=== PATIENT | female | born 1995 | race Two or more races ===

== ENCOUNTER → 2017-12-26 | Emergency (ER) | payer OTHER ==
[~2017-12-26] VITALS: Ht 167.6 cm; Wt 81.6 kg
== END | disposition home or self-care (01) ==
LOC: ER 12:47
DX: O20.0 Threatened abortion (principal); O23.41 Unspecified infection of urinary tract in pregnancy, first trimester; Z34.01 Encounter for supervision of normal first pregnancy, first trimester

== ENCOUNTER 2018-01-22 19:28 | Emergency (ER) | payer OTHER ==
[~2018-01-22] VITALS: Ht 165.1 cm; Wt 81.6 kg
== END 2018-01-22 22:50 | disposition home or self-care (01) ==
LOC: ER 19:28
DX: O26.892 Other specified pregnancy related conditions, second trimester (principal); R10.2 Pelvic and perineal pain; Z34.02 Encounter for supervision of normal first pregnancy, second trimester

== ENCOUNTER 2018-03-08 15:09 | Emergency (ER) | payer OTHER ==
[~2018-03-08] VITALS: Ht 167.6 cm; Wt 82.1 kg
== END 2018-03-08 21:19 | disposition home or self-care (01) ==
LOC: ER 15:09
DX: O23.42 Unspecified infection of urinary tract in pregnancy, second trimester (principal); R10.2 Pelvic and perineal pain; Z34.01 Encounter for supervision of normal first pregnancy, first trimester

== ENCOUNTER 2023-09-07 22:08 | Emergency (ER) | payer OTHER ==
[~2023-09-07] VITALS: Ht 165.1 cm; Wt 83.9 kg
[2023-09-07 23:13] LABS: HEMATOCRIT 37.9 % (36.0-45.00); MEAN CELL VOLUME 81.6 fL (80.00-100.00); MEAN CORPUSCULAR HEMOGLOBIN 27.9 pg (27.00-32.0); MEAN CORPUSCULAR HGB CONC 34.2 g/dl (32.0-36.0); PLATELET COUNT 322 K/uL (150-450); RED BLOOD COUNT 4.65 M/uL (4.00-6.00)
[2023-09-07 23:54] LABS: PH,URINE 6.5 (5.0-8.0); URINE APPEARANCE Clear; URINE BILIRRUBIN Negative (NEGATIVE); URINE BLOOD Negative; URINE COLOR Yellow; URINE GLUCOSE Negative (NEGATIVE); URINE LEUKOCYTE Large; URINE NITRATE Negative; URINE PROTEIN Negative (NEGATIVE); URINE UROBILINOGEN 0.2 E.U./dl
[2023-09-07 23:55] LABS: URINE BACTERIA 395.6 uL (0.0-1933); URINE EPITHELIAL CELLS 72.5 uL (0.0-38.8); URINE RBC 6.1 uL (0.0-20.8); URINE WBC 13.6 uL (0.0-23.2)
[2023-09-08] MEDS ORDERED: MONISTAT 745 GM VAG (00:05)
[2023-09-08] MEDS ORDERED: MACRODANTIN100 M1 PO (00:05)
== END 2023-09-08 00:08 | disposition home or self-care (01) ==
LOC: ER 22:09
PROVIDERS: General Practice
DX: O23.41 Unspecified infection of urinary tract in pregnancy, first trimester (principal); N39.0 Urinary tract infection, site not specified; O23.591 Infection of other part of genital tract in pregnancy, first trimester; Z3A.08 8 weeks gestation of pregnancy

== ENCOUNTER 2024-08-25 13:57 | Emergency (ER) | payer OTHER ==
[~2024-08-25] VITALS: Ht 165.1 cm; Wt 86.2 kg
[~2024-08-25 13:57] MED LIST: MACRODANTIN100 M1 PO; MONISTAT 745 GM VAG
[2024-08-25 14:59] LABS: HEMOGLOBIN 13.8 g/dL (12.0-15.00); MEAN CELL VOLUME 82.2 fL (80.00-100.00); MEAN CORPUSCULAR HEMOGLOBIN 28.5 pg (27.00-32.0); MEAN CORPUSCULAR HGB CONC 34.6 g/dl (32.0-36.0); PLATELET COUNT 332 K/uL (150-450); RED BLOOD COUNT 4.86 M/uL (4.00-6.00); RED CELL DISTRIBUTION WIDTH 13.1 % (11.5-14.5)
[2024-08-25 15:02] LABS: PH,URINE 6.5 (5.0-8.0); URINE APPEARANCE Cloudy; URINE BILIRRUBIN Negative (NEGATIVE); URINE BLOOD Negative; URINE COLOR Yellow; URINE GLUCOSE Negative (NEGATIVE); URINE KETONE Negative (NEGATIVE); URINE LEUKOCYTE Moderate; URINE NITRATE Negative; URINE PROTEIN Negative (NEGATIVE); URINE UROBILINOGEN 0.2 E.U./dl
[2024-08-25 15:06] LABS: URINE EPITHELIAL CELLS 119.8 uL (0.0-38.8); URINE RBC 12.8 uL (0.0-20.8); URINE WBC 247.4 uL (0.0-23.2)
[2024-08-25 15:35] LABS: URINE BACTERIA > 9821.5 uL (0.0-1933)
[2024-08-25] MEDS ORDERED: CEFADROXIL500 MG PO (16:17)
== END 2024-08-25 17:14 | disposition home or self-care (01) ==
LOC: ER 13:59
PROVIDERS: General Practice
DX: O26.851 Spotting complicating pregnancy, first trimester (principal); R10.2 Pelvic and perineal pain

== ENCOUNTER → 2024-09-24 | Emergency (ER) | payer OTHER ==
[~2024-09-24] VITALS: Ht 165.1 cm; Wt 81.6 kg
[~2024-09-24] MED LIST changes: +CEFADROXIL500 MG PO; +CEFTRIAXONE SODIUM 1,000 MG VIAL IV ONE; +CEFTRIAXONE SODIUM 1,000 MG VIAL ONE; +GUAIFENESIN 200 MG/10 ML BLIST.PACK PO ONE; +GUAIFENESIN 200 MG/10 ML BLIST.PACK PO STA; +GUAIFENESIN/DEXTROMETHORPHAN 10ML BLIST.PACK PO ONE; +KETOROLAC TROMETHAMINE 30 MG VIAL IV STA; +KETOROLAC TROMETHAMINE 30 MG VIAL ONE; +MEPERIDINE HCL/PF 50 MG/ML VIAL IM ONE; +ONDANSETRON HCL 2 MG/ML VIAL IV ONE; +ONDANSETRON HCL 2 MG/ML VIAL ONE; +RINGERS SOLUTION,LACTATED 1,000 ML IV SCH
[2024-09-24 06:28] LABS: HEMOGLOBIN 13.1 g/dL (12.0-15.00); MEAN CORPUSCULAR HEMOGLOBIN 27.6 pg (27.00-32.0); MEAN CORPUSCULAR HGB CONC 33.7 g/dl (32.0-36.0); PLATELET COUNT 316 K/uL (150-450); RED BLOOD COUNT 4.76 M/uL (4.00-6.00); RED CELL DISTRIBUTION WIDTH 12.8 % (11.5-14.5)
[2024-09-24 07:10] LABS: PH,URINE 5.5 (5.0-8.0); URINE APPEARANCE Clear; URINE BILIRRUBIN Negative (NEGATIVE); URINE BLOOD Small; URINE COLOR Yellow; URINE GLUCOSE Negative (NEGATIVE); URINE KETONE Negative (NEGATIVE); URINE LEUKOCYTE Trace; URINE NITRATE Negative; URINE PROTEIN Negative (NEGATIVE); URINE UROBILINOGEN 0.2 E.U./dl
[2024-09-24 07:11] LABS: URINE EPITHELIAL CELLS 7.7 uL (0.0-38.8); URINE WBC 78.1 uL (0.0-23.2)
[2024-09-24 07:19] LABS: ALBUMIN 3.3 gm/dL (3.4-5.0); BILIRUBIN TOTAL 0.19 mg/dL (0.3-1.2); CALCIUM 9.2 mg/dL (8.5-10.1); CREATININE SERUM 0.74 mg/dL (0.55-1.02); GFR 94.14; GLOBULINA 4.3 G/DL (2.4-3.5); POTASSIUM 3.57 mEq/L (3.5-5.1); TOTAL PROTEIN 7.6 gm/dL (6.4-8.2)
[2024-09-24 07:20] LABS: URINE CAST 0.14 uL (0.0-1.40)
== END | disposition designated cancer center or children's hospital (05) ==
LOC: ER 05:19
PROVIDERS: General Practice
DX: Z34.90 Encounter for supervision of normal pregnancy, unspecified, unspecified trimester (principal); R10.9 Unspecified abdominal pain; R50.9 Fever, unspecified; R10.2 Pelvic and perineal pain; Z20.822 Contact with and (suspected) exposure to COVID-19

== ENCOUNTER → 2025-01-01 09:40 | Outpatient (CLI) | payer OTHER ==
[~2025-01-01 09:40] MED LIST changes: -CEFTRIAXONE SODIUM 1,000 MG VIAL IV ONE; -CEFTRIAXONE SODIUM 1,000 MG VIAL ONE; -GUAIFENESIN 200 MG/10 ML BLIST.PACK PO ONE; -GUAIFENESIN 200 MG/10 ML BLIST.PACK PO STA; -GUAIFENESIN/DEXTROMETHORPHAN 10ML BLIST.PACK PO ONE; -KETOROLAC TROMETHAMINE 30 MG VIAL IV STA; -KETOROLAC TROMETHAMINE 30 MG VIAL ONE; -MEPERIDINE HCL/PF 50 MG/ML VIAL IM ONE; -ONDANSETRON HCL 2 MG/ML VIAL IV ONE; -ONDANSETRON HCL 2 MG/ML VIAL ONE; -RINGERS SOLUTION,LACTATED 1,000 ML IV SCH
== END | disposition home or self-care (01) ==
LOC: PRENATAL 09:40
PROVIDERS: ATTEND Obstetrics & Gynecology Maternal & Fetal Medicine
DX: O44.00 Complete placenta previa NOS or without hemorrhage, unspecified trimester (principal); O34.219 Maternal care for unspecified type scar from previous cesarean delivery; Z3A.23 23 weeks gestation of pregnancy